=== PATIENT | male | born 1965 | race Caucasian/White ===

== ENCOUNTER → 2017-04-29 | Outpatient (CLI) | payer BC ==
[2015-04-08 08:12] VITALS: BP 128/79
[2017-04-29 15:23] LABS: CREATININE 1.34 mg/dL (0.70-1.30)
--- NOTE | 2017-04-30 13:06 | MRI ---
STUDY: MRI OF THE BRAIN WITHOUT AND WITH GADOLINIUM HISTORY: Visual disturbances. Constant headaches and blurred vision. Technique: Multiplanar multi-sequence MRI of the brain was obtained utilizing standard departmental p rotocol. Sagittal and axial T1, axial T2, FLAIR, diffusion (DWI/ADC) images through the brain were pe rformed. 20 cc of Omniscan was administered intravenously without reported complication following acquisition of informed written consent. Axial and coronal post gadolinium T1 weighted images were then performed . Comparison: April 01, 2015. Findings: Pre gadolinium brain: The sulci, cisterns and ventricles are age appropriate. There are confluent and scattered foci of T2 prolongation in the periventricular and subcortical white matter of both hemisp heres. This is a nonspecific finding which likely represents microangiopathic change in a patient of this age. 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 There is no evidence of a cute territorial infarction, hemorrhage, mass, mass effect, or midline shift. There are no abnormal i ntra-axial or extra-axial fluid collections. The major intracranial vascular flow voids appear intac t. The right vertebral artery appears dominant. Post gadolinium brain: Following the uneventful administration of intravenous gadolinium, there is no evidence of abnormal brain parenchymal or leptomeningeal enhancement. IMPRESSION: 1. No evidence of acute intracranial abnormality. 2. 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 3. Nonspecific white matter change. Reported By:
== END ==
LOC: RAD 15:01
PROVIDERS: ATTEND Nurse Practitioner Family
DX: H53.8 Other visual disturbances (principal)
CPT/HCPCS: 36415; 70553; 82565; 84520